=== PATIENT | male | born 1970 | race Caucasian/White ===

== ENCOUNTER 2023-03-10 06:42 | Outpatient (RCR) | payer OTHER, SELFPAY | END 2023-03-10 23:59 | disposition home or self-care (01) | LOC: CRHB 06:42 | PROVIDERS: ATTENDING PHYSICIAN Internal Medicine Cardiovascular Disease; FAMILY PHYSICIAN Physician Assistant Medical | DX: I25.10 Atherosclerotic heart disease of native coronary artery without angina pectoris (principal); Z95.5 Presence of coronary angioplasty implant and graft | CPT/HCPCS: 93798 ==

== ENCOUNTER 2023-04-05 06:40 | Outpatient (RCR) | payer OTHER, SELFPAY | END 2023-04-05 23:59 | disposition home or self-care (01) | LOC: CRHB 06:40 | PROVIDERS: ATTENDING PHYSICIAN Internal Medicine Cardiovascular Disease; FAMILY PHYSICIAN Physician Assistant Medical | DX: I25.10 Atherosclerotic heart disease of native coronary artery without angina pectoris (principal); Z95.5 Presence of coronary angioplasty implant and graft | CPT/HCPCS: 93798 ==

== ENCOUNTER 2023-04-09 06:55 | Outpatient (RCR) | payer OTHER, SELFPAY | END 2023-04-09 23:59 | disposition home or self-care (01) | LOC: CRHB 06:55 | PROVIDERS: ATTENDING PHYSICIAN Internal Medicine Cardiovascular Disease; FAMILY PHYSICIAN Physician Assistant Medical | DX: I25.10 Atherosclerotic heart disease of native coronary artery without angina pectoris (principal); Z95.5 Presence of coronary angioplasty implant and graft | CPT/HCPCS: 93798 ==

== ENCOUNTER → 2023-07-27 07:15 | Outpatient (REF) | payer OTHER, SELFPAY | LOC: RCS 07:15 | PROVIDERS: ATTENDING PHYSICIAN Internal Medicine Cardiovascular Disease; FAMILY PHYSICIAN Physician Assistant Medical | DX: Z95.5 Presence of coronary angioplasty implant and graft (principal); I10 Essential (primary) hypertension; R01.1 Cardiac murmur, unspecified | CPT/HCPCS: 93306 ==

== ENCOUNTER → 2023-08-16 07:17 | Outpatient (REF) | payer OTHER, SELFPAY | LOC: RCS 07:17 | PROVIDERS: ATTENDING PHYSICIAN Internal Medicine Cardiovascular Disease; FAMILY PHYSICIAN Physician Assistant Medical | DX: I25.10 Atherosclerotic heart disease of native coronary artery without angina pectoris (principal); Z95.5 Presence of coronary angioplasty implant and graft; I10 Essential (primary) hypertension | CPT/HCPCS: 78452; 93017; A9500 ==

== ENCOUNTER 2023-08-27 06:26 | Day surgery (SDC) | payer OTHER, SELFPAY ==
[2023-08-27] VITALS (11 sets, daily range): BP systolic 116–148; BP diastolic 77–93; BMI 34.4
[2023-08-27] MEDS: NSS 327 ML IV (06:59)
[2023-08-27 07:24] LABS: Hematocrit 41.9 % (39.0-52.0); Hemoglobin 14.8 g/dL (13.0-18.0); Mean Corp Hgb Conc. 35.3 g/dL (33.0-37.0); Mean Corpuscular Hgb 29.8 pg (27.0-31.0); Mean Corpuscular Volume 84.3 fL (80.0-94.0); Mean Platelet Volume 10.6 fL (7.4-10.4); Platelet Count 222 10^3/uL (130-400); Red Blood Cell Count 4.97 10^6/uL (4.70-6.10); Red Cell Dist. Width 13.2 % (11.5-14.5); White Blood Cell Count 6.7 10^3/uL (4.8-10.8)
[2023-08-27 07:53] LABS: Blood Urea Nitrogen 20 mg/dl (9-20); Calcium 9.3 mg/dl (8.4-10.2); Carbon Dioxide 27 mmol/L (22-30); Chloride 106 mmol/L (98-107); Estimated Creatinine Clearance 119 ml/min; Glucose 113 mg/dl (70-99); Potassium 4.1 mmol/L (3.5-5.1); Sodium 139 mmol/L (135-145); eGFR > 60.00
[2023-08-27 09:24] LABS: ACT-LR - POC 358 Seconds (116-155)
[2023-08-27 09:46] LABS: ACT-LR - POC 313 Seconds (116-155)
[2023-08-27] MEDS: NSS 1000 IV (10:17)
--- NOTE | 2023-08-27 10:38 | ITS.CL.CATH ---
[facility] - Catheterization
Cardiac Catheterization
Procedure Report:
LEFT HEART CATH AND CORONARY INTERVENTION
Date of Procedure: August 27, 2023
Referring: Dr. Jin Brothers
PROCEDURES:
1. Left heart catheterization with coronary and single-plane left ventriculography
2. Successful stenting of the mid RCA with a 4.0 x 26 mm Gómez stent that was postdilated with a 4.0 mm noncompliant balloon inflated to 20 sterling
INDICATION: This is a 53-year-old gentleman with a past medical history notable for hypertension, hyperlipidemia, and prior coronary artery disease. He presented to [facility] on 02/09/2023 with unstable anginal symptoms and was referred for
coronary angiography. He was found to have an ulcerated 95% stenosis in the LAD and underwent successful stenting of the ostial to mid LAD with a 3.5 x 26 mm [place] stent that was post dilated with a 3.5 mm NC balloon. He did very well from February
2023 until mid July 2023. He had returned to running and was doing well until mid-July 2023 when he developed substernal chest pressure with associated nausea. A stress study was notable for a good exercise tolerance, however, he experienced chest
tightness during the exercise protocol and was found to have a reversible inferolateral defect. He is now referred for repeat coronary angiography.
ACCESS: Right radial artery, 6 Macanese sheath
HEMODYNAMICS (mmHg):
AO (s/d, m) : 107/79, 92
LV (s/d) : 110/10
LVEDP : 17
CORONARY FINDINGS
Dominance: Right
LEFT MAIN: Normal
LEFT ANTERIOR DESCENDING: The LAD arises normally from the left main and runs in the anterior interventricular groove. The first diagonal branch arises very proximally from the LAD and has a medium to large caliber vessel. The stent at the ostium
to mid LAD remains widely patent. The first diagonal branch is jailed by the stent but remains angiographically stable. The remainder of the LAD is very tortuous with luminal irregularities noted throughout the course but no focal obstructive
stenosis. The distal LAD wraps around the apex.
CIRCUMFLEX: The circumflex has an acute origin from the left main. OM1 arises proximally from the circumflex and is a small to medium caliber vessel. The circumflex terminates in a large bifurcating OM 2. Minor irregularities are noted.
RIGHT CORONARY: The RCA is a dominant vessel with a proximal colvin's crook. There is a new 95% stenosis in the mid RCA near the origin of the RV marginal branch. The RCA stenosis has the appearance of an acute ruptured plaque. The remainder of
the RCA has minor irregularities
VENTRICULOGRAPHY: Left ventriculography was performed in RAMOS projection. The digital single-plane left ventricular ejection fraction is estimated at 55-60% with mild anterolateral hypokinesis
ANGIOPLASTY PROCEDURE DETAIL: Upon review of the diagnostic catheterization films the decision was made to proceed with percutaneous revascularization of the high-grade stenosis in the mid RCA. Intravenous heparin was administered and the ACT was
measured throughout the procedure and maintained within therapeutic limits. The patient received his standard 90mg of ticagrelor this morning as well as aspirin.
The origin of the RCA was cannulated with a 6 Macanese Hockey Stick guiding catheter and a long BMW guidewire was advanced to the distal RCA. Balloon predilation was performed using a 2.25 mm Emerge balloon and was followed by placement of a 4.0 x 26
mm [place] stent that was implanted at nominal pressures then post dilated with a 4.0 mm NC balloon to 20 atmospheres with a nice angiographic result.
RADIATION SUMMARY: Fluoro Time (min): 11.3, Dose (mGy): 838, DAP (Gy.cm2) : 53.5
CONCLUSIONS
1. Successful stenting of mid RCA with placement of a 4.0 x 26 [place] stent that was postdilated to high pressures with a 4.0 mm noncompliant balloon
2. Preserved left ventricular systolic function
RECOMMENDATIONS
1. Uninterrupted dual antiplatelet therapy for 12 months given unstable nature of symptoms. Will treat with aspirin and ticagrelor
Copy to: Dr. Jin Brothers
--- NOTE | 2023-08-27 14:33 | W.PN.UPDATE ---
Update Note
Progress Note Update
53 yo WM s/p PCI RCA x 1 BARBIE (same day). He feels good, no cp, sob, leanne diet, voiding, EKG SR, no ST changes, R Rad site c/d/i. He will continue DAPT ASA/Brilinta. Cardiac rehab c/s. He will f/u [facility] in 2 weeks. He is for d/c home after 230p.
Referring: Dr. Jin Brothers
PROCEDURES:
1. Left heart catheterization with coronary and single-plane left ventriculography
2. Successful stenting of the mid RCA with a 4.0 x 26 mm Gómez stent that was postdilated with a 4.0 mm noncompliant balloon inflated to 20 sterling
INDICATION: This is a 53-year-old gentleman with a past medical history notable for hypertension, hyperlipidemia, and prior coronary artery disease. He presented to [facility] on 02/09/2023 with unstable anginal symptoms and was referred for
coronary angiography. He was found to have an ulcerated 95% stenosis in the LAD and underwent successful stenting of the ostial to mid LAD with a 3.5 x 26 mm Gómez stent that was post dilated with a 3.5 mm NC balloon. He did very well from February
2023 until mid July 2023. He had returned to running and was doing well until mid-July 2023 when he developed substernal chest pressure with associated nausea. A stress study was notable for a good exercise tolerance, however, he experienced chest
tightness during the exercise protocol and was found to have a reversible inferolateral defect. He is now referred for repeat coronary angiography.
== END 2023-08-27 14:30 | disposition home or self-care (01) ==
LOC: CATH 06:26
PROVIDERS: ATTENDING PHYSICIAN Internal Medicine Interventional Cardiology; FAMILY PHYSICIAN Physician Assistant Medical; OTHER PHYSICIAN Internal Medicine Cardiovascular Disease
DX: I25.10 Atherosclerotic heart disease of native coronary artery without angina pectoris (principal); E78.5 Hyperlipidemia, unspecified; I10 Essential (primary) hypertension; Z95.5 Presence of coronary angioplasty implant and graft; Z79.02 Long term (current) use of antithrombotics/antiplatelets; Z79.82 Long term (current) use of aspirin
CPT/HCPCS: 80048; 85027; 85347; 93005; 93458; C1725; C1769; C1874; C1887; C1894; C9600; Q9967

== ENCOUNTER 2024-01-01 14:23 | Emergency (ER) | payer OTHER, SELFPAY ==
[2024-01-01 14:28] VITALS: BP 130/76
--- NOTE | 2024-01-01 14:45 | ED.GENMED ---
History of Present Illness
<Mayuri Duenas PA-C - Last Filed: 01/01/24 16:15>
General
Chief Complaint: Skin Surface Trauma
Source: patient
Exam Limitations: none
Time Seen by Provider: 01/01/24 14:44
Nursing documentation reviewed up to this point in time: agreed with
History of Present Illness
History of Present Illness:
This is a 53 y/o male with past medical history of hypertension, hyperlipidemia presents emergency department today with concerns of a cut to his left index finger. Patient that he was using a table saw at home today when he was sawing
[id number] and excellently caught his finger within the fall. Patient reports that he immediately rinsed off the wound and reported to the emergency department. Patient notes persistent bleeding. Patient does take aspirin but does not take
any anticoagulant medication. Patient states he has not had his tetanus vaccine within the last 5 years. Patient denies any other injuries.
Past History
<Mayuri Duenas PA-C - Last Filed: 01/01/24 16:15>
Past History
ED Past Medical History: None
ED Past Surgical History: None
Social History
Living: with family
Review of Systems
<Mayuri Duenas PA-C - Last Filed: 01/01/24 16:15>
Review of Systems
All Other Systems: ROS reviewed and negative except as documented in HPI and ROS
Phy Exam
<Mayuri Duenas PA-C - Last Filed: 01/01/24 16:15>
Physical Exam
Physical Exam:
General: Patient is well appearing and in no acute distress; non-toxic
Skin: Warm and dry, brisk capillary refill noted
Head: Normocephalic, atraumatic
Eyes: Sclera non-icteric. EOMs intact.
Cardiac: Regular rate
Pulm: Normal respiratory effort
Abdomen: No abdominal tenderness
Musculoskeletal: Partial skin and nail avulsion noted to left index finger with tenderness to palpation noted at the distal left index finger
Neuro: CN II-XII intact, no focal neurologic deficits. Sensation intact to light touch.
Psychiatric: Appropriate mood and affect.
Course
<Mayuri Duenas PA-C - Last Filed: 01/01/24 16:15>
Orders/Labs/Results
Orders:
Orders
01/01/24 14:33
Finger(s)/Thumb 2 View Lt [CR Finger(s)/thumb Min 2 Vw Lt] Urgent
Comment:
Reason For Exam: tablej saw caught tip of finger
Indicate Which Finger:: Index Finger
01/01/24 15:05
Tetanus/Diphth/Acelpertussis [Adacel] 0.5 ml IM .ONCE ONE
01/01/24 16:00
Cephalexin Monohydrate [Keflex] 500 mg PO NOW STA
Vital Signs
Initial and Last Documented VS:
Initial Vital Signs
Temp Pulse Resp BP Pulse Ox
98.3 F 59 16 130/76 98
01/01/24 14:28 01/01/24 14:28 01/01/24 14:28 01/01/24 14:28 01/01/24 14:28
Last Documented Vital Signs
Temp Pulse Resp BP Pulse Ox
98.3 F 59 16 130/76 98
01/01/24 14:28 01/01/24 14:28 01/01/24 14:28 01/01/24 14:28 01/01/24 14:28
<Pma Wilson DO - Last Filed: 01/01/24 16:08>
Orders/Labs/Results
Orders:
Orders
01/01/24 14:33
Finger(s)/Thumb 2 View Lt [CR Finger(s)/thumb Min 2 Vw Lt] Urgent
Comment:
Reason For Exam: tablej saw caught tip of finger
Indicate Which Finger:: Index Finger
01/01/24 15:05
Tetanus/Diphth/Acelpertussis [Adacel] 0.5 ml IM .ONCE ONE
01/01/24 16:00
Cephalexin Monohydrate [Keflex] 500 mg PO NOW STA
Vital Signs
Initial and Last Documented VS:
Initial Vital Signs
Temp Pulse Resp BP Pulse Ox
98.3 F 59 16 130/76 98
01/01/24 14:28 01/01/24 14:28 01/01/24 14:28 01/01/24 14:28 01/01/24 14:28
Last Documented Vital Signs
Temp Pulse Resp BP Pulse Ox
98.3 F 59 16 130/76 98
01/01/24 14:28 01/01/24 14:28 01/01/24 14:28 01/01/24 14:28 01/01/24 14:28
<Mayuri Duenas PA-C - Last Filed: 01/01/24 16:15>
MDM/Problems Addressed
Differential Diagnosis Includes:
Differentials include abrasion, laceration, avulsion, distal phalanx fracture
MDM/Problems Addressed:
53-year-old male presents emergency department today with concerns of partial fingertip and nail avulsion following injury with table saw. Patient states his last tetanus was likely over 5 years ago. His x-ray shows a distal phalanx fracture.
Patient tetanus was updated and a bulky dressing was applied. He was started on antibiotics prophylactically. He is given follow-up for hand surgery. Return precautions were discussed. All patient's questions were answered. Patient stable for
discharge.
Chronic conditions affecting care:
Hypertension, hyperlipidemia
<Mayuri Duenas PA-C - Last Filed: 01/01/24 16:15>
*Pulse Oximetry
Patient hypoxic: no
*Critical Care Note
Total Time (30-74mins, 75-104mins- exclusive of procedures): Not Applicable
Data Reviewed
Review of Other/Old Records Reveals: Records (Reviewed [facility], reviewed discharge summary from 11/27/2018 where patient was admitted to hospital for cellulitis)
Source: patient and records
Further Testing Considered But Not Given:
n/a
<Mayuri Duenas PA-C - Last Filed: 01/01/24 16:15>
Patient Management
Escalation/DeEscalation of care consider admission/obs:
Admit not indicated
Reviewed case with my ER attending
ED Attending Note
<Mayuri Duenas PA-C - Last Filed: 01/01/24 16:15>
-
Portions of this chart may have been created with voice recognition software.� Occasional wrong word or��sound alike� substitutions may have occurred due to the inherent limitations of voice recognition software.
<Pam Wilson DO - Last Filed: 01/01/24 16:08>
ED Attending Note
ED Attending Note:
53-year-old male presenting to the emergency department with an injury to the left first finger. Patient reports he was using a table saw, partially avulsed the first digit. Bleeding is since been controlled. Tetanus status unknown. Denies
issues with range of motion. He is not on any blood thinners. Vital signs are normal.
On exam, patient is resting comfortably, no acute distress or discomfort. Patient does have a distal avulsion of the left first digit. Bleeding controlled. Partially through the nail, however nailbed is intact. Range of motion intact. Distal
sensation intact. X-ray obtained, distal tuft fracture. Will irrigate, however no suturable tissue. Will provide bulky dressing and update tetanus. Patient to be started on antibiotics plan for outpatient orthopedic follow-up. Return
precautions discussed and patient verbalized understanding
Discharge Plan
Departure
Patient Disposition: Home (Routine Discharge)
Date of Disposition: 01/01/24
Time of Disposition: 16:02
Patient with high blood pressure during this ER visit?: Yes
Condition: Good
Discharge Problem:
Fracture of distal phalanx of finger, Avulsion of skin
Instructions: Finger fracture, Wound Care (DC), BLOOD PRESSURE
Prescriptions:
New
cephalexin 500 mg capsule
500 mg PO QID 5 Days Qty: 20 0RF
No Action
amlodipine 10 mg Tablet
10 mg PO DAILY
lisinopril 10 mg Tablet
10 mg PO DAILY
Rx Instructions:
patient takes in the afternoon
aspirin 81 mg Tablet,Chewable
81 mg PO DAILY
multivitamin Tablet
1 tab PO DAILY
cholecalciferol (vitamin D3) [Vitamin D3] 10 mcg (400 unit) Capsule
10 mcg PO DAILY
vitamin K2 40 mcg Tablet
40 mcg PO DAILY
Brilinta 90 mg tablet
90 mg PO BID Qty: 60 5RF
nitroglycerin 0.4 mg tablet, sublingual
0.4 mg sublingual [id number] PRN (Reason: chest pain) Qty: 25 5RF
metoprolol succinate 25 mg tablet extended release 24 hr
25 mg PO DAILY Qty: 90 10RF
rosuvastatin 20 mg tablet
20 mg PO QPM Qty: 90 5RF
Referrals:
Daria Cortes PA [Family Provider] -
Kenan Thompson MD [Active] - Call in 1-3 days for appt
Activity Restrictions/Additional Instructions:
Your x-ray showed a mildly displaced fracture through the distal tuft of your finger. Please call Dr. Velez office on Wednesday to schedule an appointment for follow-up.
Please change dressing once daily. Please keep dressing in place for 24 hours and do not get the dressing wet. You can start by applying petroleum soaked gauze first over the wound in layers followed by a nonadherent pad, followed by kerlix wrap
and medical tape.
An antibiotic called Keflex has been sent to your pharmacy. Please take 1 tablet 4 times daily for 5 days.
Please return to emergency department should you experience purulent drainage from your wound, fevers or chills, surrounding redness or swelling, and acute worsening of your pain, any other signs or symptoms worrisome to you.
Interventions
Interventions:
*Risk Screen - Suicide Last Done: 01/01/24 14:28
*Neglect/Abuse Screening Last Done: 01/01/24 14:28
Discharge Date and Time
Print Language: GUATEMALAN
[2024-01-01] MEDS: ADACEL 0.5 ML IM (16:18)
[2024-01-01] MEDS: KEFLEX 500 MG PO (16:21)
== END 2024-01-01 16:15 | disposition home or self-care (01) ==
LOC: EMR 14:23
PROVIDERS: EMERGENCY PHYSICIAN Student in an Organized Health Care Education/Training Program; FAMILY PHYSICIAN Physician Assistant Medical
DX: S62.631B Displaced fracture of distal phalanx of left index finger, initial encounter for open fracture (principal); W29.8XXA Contact with other powered hand tools and household machinery, initial encounter; Z23 Encounter for immunization; I10 Essential (primary) hypertension; E78.00 Pure hypercholesterolemia, unspecified; Z79.82 Long term (current) use of aspirin
CPT/HCPCS: 99283; 90471; 73140; 90715

== ENCOUNTER 2025-01-30 14:47 | Emergency (ER) | payer OTHER, SELFPAY ==
[2025-01-30] VITALS (10 sets, daily range): BP systolic 77–153; BP diastolic 67–97; BMI 35.2
--- NOTE | 2025-01-30 15:36 | ED.GENMED ---
History of Present Illness
<Moses Schultz MD, Resident - Last Filed: 01/30/25 22:31>
General
Chief Complaint: Chest Pain
Time Seen by Provider: 01/30/25 15:36
History of Present Illness
History of Present Illness:
55 yo M PMH HTN, HLD, CAD s/p two stents p/w chest pain while on treadmill ~1.5 hours ago. Reports burning in substernal chest that rises up to throat. Happenned yesterday in the setting of no exercise after lunchtime, modestly constant until 5pm
yesterday. Today, was on treadmill, then experienced similar symptoms, modest constant burning rising to throat that self resolved.
the burning pain did not resolve when stopping exertion.
he did not take tums or anything. only tried water which appeared to help.
nonradiating, no arm or jaw pain
this is not similar to the pain he had when he needed stents.
he denies history of GERD, denies nighttime cough, no dyspnea, no headache, no abdominal pain.
report some nausea, at present, he is burning pain free.
pain is not reproducible to palpation or movement of arms
Past History
<Moses Schultz MD, Resident - Last Filed: 01/30/25 22:31>
Past History
ED Past Medical History: None
ED Past Surgical History: None
Social History
Living: with family
Review of Systems
<Moses Schultz MD, Resident - Last Filed: 01/30/25 22:31>
Review of Systems
Constitutional: Reports no symptoms
EENT: Reports no symptoms
Respiratory: Reports no symptoms
Cardiac: Reports chest pain (burning character, radiates up to throat.)
ABD/GI: Reports nausea
: Reports no symptoms
Musculoskeletal: Reports no symptoms
Neurological: Reports no symptoms
Phy Exam
<Moses Schultz MD, Resident - Last Filed: 01/30/25 22:31>
Physical Exam
Physical Exam:
VS: 134/90; HR 65; T 97.5
General: no acute distress
CV: no murmurs, pain is not reproducible to palpation
Pulm: CTAB
Abd: no tenderness to palpation
MSK: no lower extremity edema
Neuro: nonfocal
Scores
<Moses Schultz MD, Resident - Last Filed: 01/30/25 22:31>
Heart Score for Chest Pain Patients
Heart Score for Chest Pain Patients: 4
Heart Score Risk: 20.3% MACE over next 6 weeks
<Devaughn Farmer MD - Last Filed: 01/30/25 23:14>
Heart Score for Chest Pain Patients
STEMI patient?: No
History: Moderately Suspicious
ECG: Normal
Age: >45 - <65 years
Risk Factors: >/= 3 Risk Factors or History of CAD
Troponin: </= Normal Limit
Heart Score for Chest Pain Patients: 4
Heart Score Risk: 20.3% MACE over next 6 weeks
Course
<Moses Schultz MD, Resident - Last Filed: 01/30/25 22:31>
Orders/Labs/Results
Orders:
Orders
01/30/25 14:48
EKG [Electrocardiogram (*1)] Urgent
Reason for Study: Chest Pain
EKG- Treatment ONCE
01/30/25 16:06
CMP [Comprehensive Metabolic Panel] Urgent
Complete Blood Count/With Diff Urgent
Lipase Urgent
Troponin I Urgent
01/30/25 16:15
CR Chest - 2 Views Urgent
Comment:
Reason For Exam: chest pain
01/30/25 18:51
EKG [Electrocardiogram (*1)] Urgent
Reason for Study: Chest Pain
Comment: 2nd troponin
EKG- Treatment ONCE
01/30/25 18:58
Troponin I Urgent
01/30/25 22:05
Troponin I Urgent
Abnormal Lab Results
01/30/25
16:06
Lymphocytes % 15.7 L %
(20.5-51.1)
01/30/25 16:06
01/30/25 16:06
Vital Signs
Initial and Last Documented VS:
Initial Vital Signs
Temp Pulse Resp BP Pulse Ox
36.4 C 80 20 134/90 99
01/30/25 14:51 01/30/25 14:51 01/30/25 14:51 01/30/25 14:51 01/30/25 14:51
Last Documented Vital Signs
Temp Pulse Resp BP Pulse Ox
36.4 C 51 20 132/86 92
01/30/25 14:51 01/30/25 19:45 01/30/25 19:45 01/30/25 19:00 01/30/25 17:45
<Devaughn Farmer MD - Last Filed: 01/30/25 23:14>
Orders/Labs/Results
Orders:
Orders
01/30/25 14:48
EKG [Electrocardiogram (*1)] Urgent
Reason for Study: Chest Pain
EKG- Treatment ONCE
01/30/25 16:06
CMP [Comprehensive Metabolic Panel] Urgent
Complete Blood Count/With Diff Urgent
Lipase Urgent
Troponin I Urgent
01/30/25 16:15
CR Chest - 2 Views Urgent
Comment:
Reason For Exam: chest pain
01/30/25 18:51
EKG [Electrocardiogram (*1)] Urgent
Reason for Study: Chest Pain
Comment: 2nd troponin
EKG- Treatment ONCE
01/30/25 18:58
Troponin I Urgent
01/30/25 22:05
Troponin I Urgent
Abnormal Lab Results
01/30/25
16:06
Lymphocytes % 15.7 L %
(20.5-51.1)
01/30/25 16:06
01/30/25 16:06
Vital Signs
Initial and Last Documented VS:
Initial Vital Signs
Temp Pulse Resp BP Pulse Ox
36.4 C 80 20 134/90 99
01/30/25 14:51 01/30/25 14:51 01/30/25 14:51 01/30/25 14:51 01/30/25 14:51
Last Documented Vital Signs
Temp Pulse Resp BP Pulse Ox
36.4 C 51 20 132/86 92
01/30/25 14:51 01/30/25 19:45 01/30/25 19:45 01/30/25 19:00 01/30/25 17:45
<Moses Schultz MD, Resident - Last Filed: 01/30/25 22:31>
MDM/Problems Addressed
Differential Diagnosis Includes:
ACS, PE, GERD, dissection, costochondritis, peptic ulcer
MDM/Problems Addressed:
55 yo M PMH HTN, HLD, CAD s/p stents x2 p/w burning chest pain substernal radiates up to throat, occurred at rest yesterday, and then upon treadmill exercise today, but did not resolve with resolution of exercise.
ACS remains high on ddx, but other etiologies including PE or dissection should be considered. However, these are lower given the HPI.
burning character could point towards GERD.
Plan:
CBC, CMP
serial troponin
serial EKG
reach out to cardiology
Update:
Troponin < 0.012
Lipase 95
CXR no acute cardiopulmonary process
Per cardiology, if repeat troponin is negative, can do nuclear stress test outpatient with cardiology follow-up
Update:
Troponin #2 0.018
cardiology notified, recommended repeat troponin 3hr interval.
Troponin #3 scheduled at 22:00 * pending
Depending on troponin #3 trend, may need to update cardiology or outpatient follow-up is appropriate.
<Moses Schultz MD, Resident - Last Filed: 01/30/25 22:31>
*Pulse Oximetry
SaO2: 99
Oxygen Mode of Delivery: Room air
Patient hypoxic: no
*Critical Care Note
Total Time (30-74mins, 75-104mins- exclusive of procedures): Not Applicable
ED Attending Note
<Moses Schultz MD, Resident - Last Filed: 01/30/25 22:31>
-
Portions of this chart may have been created with voice recognition software.� Occasional wrong word or��sound alike� substitutions may have occurred due to the inherent limitations of voice recognition software.
<Devaughn Farmer MD - Last Filed: 01/30/25 23:14>
ED Attending Note
Patient seen and examined by attending physician: Yes
I performed a history and physical exam of patient and discussed management with resident, I reviewed resident's note and agree with documented findings and plan of care.: Yes
ED Attending Note:
I have seen and evaluated the patient with a [id number] encounter. I have spoken to the resident and involved in the medical history, the physical exam, medical decision making.
Evaluation and management service: agree unless noted differently below.
Results interpretation: agree unless noted differently below.
Focused HPI: 55-year-old male with a past medical history of hypertension, hyperlipidemia, GERD, CAD status post stents (most recent in September 2022, sees Dr. Jin Brothers for cardiology) who presents to the emergency department for evaluation of
chest pain. Patient reports onset of symptoms yesterday while at rest and lasted for few hours and resolved without intervention. He says today he had onset of symptoms after about 25 minutes on the treadmill and a lasted for about 90 minutes
after stopping the rest�currently chest pain-free. Came to the ER for evaluation. He describes a burning substernal sensation. He denies any associated shortness of breath. He denies any nausea, vomiting, abdominal pain. He denies any swelling
or pain in the legs. He denies any other acute complaints. He says that he has never had similar pains in the past. He did of note recently start Wegovy for weight loss 2 weeks ago.
Physical exam: Awake and alert. Vital signs are normal. No cardiac rubs gallops or murmurs appreciated. Lungs sound clear bilaterally. No JVD and no significant edema in the legs. Good pulses throughout. Abdomen nontender.
Medical Decision Makin-year-old male with significant history of CAD presents for atypical chest pain for the past 24 hours�yesterday had a prolonged resting episode today had an episode seemingly triggered with exertion. Currently chest
pain-free. His vitals and exam are as above. His EKG shows sinus rhythm no acute ischemia. Plan to place an IV check labs including a CBC and a CMP, troponins, lipase. Check chest x-ray. Will discuss case with cardiology given his HEART score
of 4.
Initial troponin undetectable. Chest x-ray no acute disease. Patient seen by cardiology in consultation and recommended repeat troponin if negative discharged for outpatient stress testing.
Repeat troponin negative although there was a delta went from undetectable to 0.018. Resident discussed with cardiology recommended third troponin if flat or negative will proceed with plan for discharge and outpatient stress testing. If
significantly uptrending will need admission.
Third troponin is essentially flat, not significantly elevated compared to prior. Remains negative. Patient chest pain-free, normal vitals on clinical reassessment. Resident discussed with cardiology, recommending follow-up in the office as
planned. Will discharge at this point, patient comfortable with this plan. Spoke about return precautions, follow-up plan, all questions answered in detail.
Discharge Plan
Departure
Patient Disposition: Home (Routine Discharge)
Date of Disposition: 01/30/25
Time of Disposition: 23:14
Patient with high blood pressure during this ER visit?: No
Discharge Problem:
Chest pain
Instructions: Chest Pain DCA Follow Up
Prescriptions:
No Action
amlodipine 10 mg Tablet
10 mg PO DAILY
lisinopril 10 mg Tablet
10 mg PO DAILY
Rx Instructions:
patient takes in the afternoon
aspirin 81 mg Tablet,Chewable
81 mg PO DAILY
multivitamin Tablet
1 tab PO DAILY
cholecalciferol (vitamin D3) [Vitamin D3] 10 mcg (400 unit) Capsule
10 mcg PO DAILY
vitamin K2 40 mcg Tablet
40 mcg PO DAILY
Brilinta 90 mg tablet
90 mg PO BID Qty: 60 5RF
nitroglycerin 0.4 mg tablet, sublingual
0.4 mg sublingual [id number] PRN (Reason: chest pain) Qty: 25 5RF
metoprolol succinate 25 mg tablet extended release 24 hr
25 mg PO DAILY Qty: 90 10RF
rosuvastatin 20 mg tablet
20 mg PO QPM Qty: 90 5RF
cephalexin 500 mg capsule
500 mg PO QID 5 Days Qty: 20 0RF
Referrals:
Jin Brothers MD [Active, Cardiology] - Call in 1-3 days for appt
Activity Restrictions/Additional Instructions:
Thank you for visiting the Emergency Department at [facility].
1. Please schedule a follow up appointment as directed. Call first thing tomorrow morning to make an appointment.
2. If indicated, please take your medications as instructed and indicated on discharge paperwork.
3. If any of your symptoms do not improve, or persist, or become more severe within 6-12 hours, please return to the emergency department for further care.
4. Please return to the emergency department if you develop a headache, neck pain/stiffness, fever greater than 100.4F, chest pain, shortness of breath, persistent nausea, vomiting, slurred speech, difficulty walking, numbness/tingling, weakness,
signs of infection or any other symptoms that are worrisome to you.
Please call [phone] if you have any questions.
Interventions
Interventions:
*General Assessment Last Done: 01/30/25 14:51
*Neglect/Abuse Screening Last Done: 01/30/25 14:51
*ED COVID-19 Vaccine History Last Done: 01/30/25 15:51
*ED Influenza Vaccine History Last Done: 01/30/25 15:51
[facility] Fall Risk Assessment Tool Last Done: 01/30/25 15:51
*Risk Screen - Suicide (C-SSRS) Last Done: 01/30/25 14:51
ED- Cardiac Assessment Last Done: 01/30/25 15:51
Discharge Date and Time
Print Language: TURKISH
[2025-01-30 16:21] LABS: Hematocrit 45.1 % (39.0-52.0); Hemoglobin 15.1 g/dL (13.0-18.0); Mean Corp Hgb Conc. 33.5 g/dL (33.0-37.0); Mean Corpuscular Volume 86.1 fL (80.0-94.0); Nucleated Red Blood Cells % 0 % (-); Platelet Count 260 10^3/uL (130-400); Red Cell Dist. Width 13.5 % (11.5-14.5)
[2025-01-30 16:40] LABS: ALT (SGPT) 48 U/L (0-50); AST (SGOT) 40 U/L (17-59); Albumin 4.8 g/dl (3.5-5.0); Alkaline Phosphatase 67 U/L (38-126); Blood Urea Nitrogen 17 mg/dl (9-20); Calcium 9.3 mg/dl (8.4-10.2); Carbon Dioxide 24 mmol/L (22-30); Chloride 103 mmol/L (98-107); Estimated Creatinine Clearance 109 ml/min; Glucose 89 mg/dl (70-99); Lipase 95 U/L (23-300); Potassium 4.3 mmol/L (3.5-5.1); Sodium 136 mmol/L (135-145); Total Protein 7.3 g/dl (6.3-8.2); eGFR > 60.00
[2025-01-30 16:45] LABS: Troponin I < 0.012 ng/ml
--- NOTE | 2025-01-30 16:51 | CON.CAR ---
Addendum entered and electronically signed by Sawyer Romero DO 01/30/25 17:50:
I saw and examined the patient.
The College Archivist's note was reviewed and I agree with the note.
Comment:
Plan:
Presents with 2 episodes of chest pain that felt like a burning in the base of his throat. This is Not like his prior angina prior to his PCIs to LAD and RCA.
First troponin is negative.
We discussed options. His symptoms are atypical and he was exercising yesterday as well without symptoms. Discussed admit for possible cath tomorrow vs second troponin and if negative then schedule outpt exercise nuclear stress and then follow up
with Dr Brothers. He does not want to stay but is agreeable to second troponin and stress testing.
He knows not to exercise until his stress is completed and to return to ER if he has recurrent symptoms.
EKG is unchanged from prior and troponin negative. Check second 4 hr troponin and if negative then he will return as outpt for stress testing.
HR and bp stable.
Outpatient dose of aspirin 81 mg daily should be continued
Outpatient doses of amlodipine 10 mg daily, lisinopril 40 mg daily and Toprol-XL 12.5 mg daily should be continued
He will review with PCP whether or not he should continue with Wegovy as he may be having symptoms with it.
Discussed with ER.
HPI: Patient came to the ER today with chest pain and cardiology has been consulted. Patient has a history of CAD s/p LAD PCI 02/2023, RCA PCI 08/27/23, HTN, HLD. Patient has a history of LAD PCI with symptoms of abdominal discomfort radiating into
the chest followed by LAD PCI back on 02/10/2023. At time of cardiac cath on 02/10/2023 there was a 50 to 60% mid RCA lesion. Patient then had recurrent chest pain and was taken back to [facility] [employer] [facility] [employer] [facility] on 08/27/2023 and the mid RCA lesion was 95% and
patient had PCI. Since then patient says he has been able to complete exercise including running 3-5 times a week and then walking 70 minutes a day on the off days without any chest pain or recent decrease in exercise tolerance. He has not had any
other concerning chest pain until an episode of substernal chest burning that started after eating a piece of brisket for lunch yesterday. The symptoms lasted for hours, from about 1 PM to 5 PM and then resolved. Patient was beginning one of his
running routines on the treadmill today and 25 minutes into the exercise he had recurrent substernal chest burning up into his throat that persisted even after he stopped exercising. Pain lasted for hours and he returned home and got a shower and
called the cardiology office with ongoing pain. He drank a sip of water and pain felt better dropping from a 5 out of 10 down to a 1 out of 10, but symptoms then returned in the ER waiting room. Initial troponin undetectable. ECG does not show
any acute ischemic change. Overall he says the symptoms are very different from what he had during his initial ACS episodes in 2023. Additionally he started Wegovy and is due for his third shot tomorrow, moving his bowels okay and denies any
nausea or vomiting. Denies SOB, pain to arms or jaw, N/V, lightheadedness.
Original Note:
Consultation
Consultation Request
Date/Time Consultation Performed: 01/30/25
Requesting Provider: Dr. Farmer
Performing Provider: Letty Quezada PA-C for Dr. Romero
Reason for Consultation: Chest pain
Medical History
-
Chief Complaint: CP
History of Present Illness:
Patient came to the ER today with chest pain and cardiology has been consulted. Patient has a history of CAD s/p LAD PCI 02/2023, RCA PCI 08/27/23, HTN, HLD. Patient has a history of LAD PCI with symptoms of abdominal discomfort radiating into the
chest followed by LAD PCI back on 02/10/2023. At time of cardiac cath on 02/10/2023 there was a 50 to 60% mid RCA lesion. Patient then had recurrent chest pain and was taken back to [facility] [employer] [facility] on 08/27/2023 and the mid RCA lesion was 95% and patient
had PCI. Since then patient says he has been able to complete exercise including running 3-5 times a week and then walking 70 minutes a day on the off days without any chest pain or recent decrease in exercise tolerance. He has not had any other
concerning chest pain until an episode of substernal chest burning that started after eating a piece of brisket for lunch yesterday. The symptoms lasted for hours, from about 1 PM to 5 PM and then resolved. Patient was beginning one of his running
routines on the treadmill today and 25 minutes into the exercise he had recurrent substernal chest burning up into his throat that persisted even after he stopped exercising. Pain lasted for hours and he returned home and got a shower and called
the cardiology office with ongoing pain. He drank a sip of water and pain felt better dropping from a 5 out of 10 down to a 1 out of 10, but symptoms then returned in the ER waiting room. Initial troponin undetectable. ECG does not show any acute
ischemic change. Overall he says the symptoms are very different from what he had during his initial ACS episodes in 2023. Additionally he started Wegovy and is due for his third shot tomorrow, moving his bowels okay and denies any nausea or
vomiting. Denies SOB, pain to arms or jaw, N/V, lightheadedness.
PMH:
CAD
s/p 3.5 mm [place] BARBIE to the LAD 02/10/2023
s/p 4.0 [place] BARBIE to the mid RCA 08/27/2023
HTN
HLD
Obesity
Past Medical History
Past Medical History: Other (in HPI)
Past Surgical History: Cardiac (LAD PCI 02/10/2023, RCA PCI 08/27/2023)
Social History
Tobacco: Non-Smoker
Alcohol: Daily
Drug: None
Personal:
Living: With Family
Employment: Employed
Family History
Family History: CAD and Hypertension
Allergies / Home Medications
Allergy/AdvReac Type Severity Reaction Status Date / Time
No Known Allergies Allergy Verified 01/30/25 14:51
�Medication �Instructions �Recorded �Confirmed �Type
amlodipine 10 mg tablet 10 mg PO DAILY 01/20/23 08/27/23 History
lisinopril 10 mg tablet 10 mg PO DAILY 01/20/23 08/27/23 History
aspirin 81 mg chewable tablet 81 mg PO DAILY 02/10/23 08/27/23 History
cholecalciferol (vitamin D3) 10 10 mcg PO DAILY 02/10/23 08/27/23 History
mcg (400 unit) capsule (Vitamin D3)
metoprolol succinate 25 mg 25 mg PO DAILY #90 tabs 02/10/23 08/27/23 Rx
tablet,extended release 24 hr
multivitamin 1 tab PO DAILY 02/10/23 08/27/23 History
nitroglycerin 0.4 mg sublingual 0.4 mg sublingual [id number] PRN 02/10/23 08/27/23 Rx
tablet chest pain #25 tabs
rosuvastatin 20 mg tablet 20 mg PO QPM #90 tabs 02/10/23 08/27/23 Rx
ticagrelor 90 mg tablet (Brilinta) 90 mg PO BID #60 tabs 02/10/23 08/27/23 Rx
vitamin K2 40 mcg tablet 40 mcg PO DAILY 02/10/23 08/27/23 History
cephalexin 500 mg capsule 500 mg PO QID 5 days #20 caps 01/01/24 Rx
Review of Systems
-
History Source: Patient
All other systems: Negative unless noted
Physical Exam
Vital Signs
Temp Pulse Resp BP Pulse Ox
97.5 F 65 12 145/67 97
01/30/25 14:51 01/30/25 16:00 01/30/25 16:00 01/30/25 15:48 01/30/25 16:00
GEN: NAD. AAO x 3
HEENT: EOMI, MMM
LUNGS: RA. CTA B/L, no wheeze
CV: SR on telemetry. Reg, S1/S2, no murmur
ABD: ND
EXT: No edema B/L LE
NEURO: Gross non-focal
SKIN: No rash
Lab Results
01/30/25 16:06
01/30/25 16:06
Troponin I < 0.012 ng/ml 01/30/25 16:06
Impression / Plan
-
PCP: Daria Cortes
Primary Crab Picker: Dr. DANITA Brothers
Assessment:
Presentation with CP 01/30/2025
Chest pain with undetectable troponin initially
CAD
s/p 3.5 mm [place] BARBIE to the LAD 02/10/2023
s/p 4.0 [place] BARBIE to the mid RCA 08/27/2023
HTN
HLD
Obesity
ECHO 07/27/23: EF 55 to 60%, mild concentric LVH, aortic sclerosis, trace AR, mildly dilated aortic root 3.8 cm
Plan:
-Patient came to the ER today with chest pain and cardiology has been consulted. Patient has a history of CAD s/p LAD PCI 02/2023, RCA PCI 08/27/23, HTN, HLD. Patient has a history of LAD PCI with symptoms of abdominal discomfort radiating into the
chest followed by LAD PCI back on 02/10/2023. At time of cardiac cath on 02/10/2023 there was a 50 to 60% mid RCA lesion. Patient then had recurrent chest pain and was taken back to [facility] [employer] on 08/27/2023 and the mid RCA lesion was 95% and patient
had PCI. Since then patient says he has been able to complete exercise including running 3-5 times a week and then walking 70 minutes a day on the off days without any chest pain or recent decrease in exercise tolerance. He has not had any other
concerning chest pain until an episode of substernal chest burning that started after eating a piece of brisket for lunch yesterday. The symptoms lasted for hours, from about 1 PM to 5 PM and then resolved. Patient was beginning one of his running
routines on the treadmill today and 25 minutes into the exercise he had recurrent substernal chest burning up into his throat that persisted even after he stopped exercising. Pain lasted for hours and he returned home and got a shower and called
the cardiology office with ongoing pain. He drank a sip of water and pain felt better dropping from a 5 out of 10 down to a 1 out of 10, but symptoms then returned in the ER waiting room. Initial troponin undetectable. ECG does not show any acute
ischemic change. Overall he says the symptoms are very different from what he had during his initial ACS episodes in 2023. Additionally he started Wegovy and is due for his third shot tomorrow, moving his bowels okay and denies any nausea or
vomiting. Denies SOB, pain to arms or jaw, N/V, lightheadedness.
-ECG reviewed by me is SR without acute ST changes
-Initial troponin is undetectable despite hours of pain today and yesterday. Patient reports the symptoms feel different than his previous ACS. Patient does not routinely have chest pain however and this is unusual for him to have chest pain
symptoms.
-Given the patient's history of accelerated CAD as outlined above we discussed option of proceeding with cardiac catheterization as an evaluation if he has ongoing chest pain or if his next troponin returns elevated. If the next troponin remains
undetectable then patient can be discharged to home for an outpatient exercise nuclear stress test.
-Outpatient dose of aspirin 81 mg daily should be continued
-Patient stopped taking Brilinta at the direction of Dr. Brothers during his last office visit on 07/13/2024 as it had been almost 1 year since his last stent, patient previously tolerated Brilinta without issue.
-Outpatient doses of amlodipine 10 mg daily, lisinopril 40 mg daily and Toprol-XL 12.5 mg daily should be continued
Data Reviewed
-
EKG: Tracing Personally Visualized and interpreted
Medical Tests (Nuc Med, Echo etc): Report Reviewed by me
Labs: Labs Reviewed by me
Old Records: Reviewed
[2025-01-30 19:44] LABS: Troponin I 0.018 ng/ml
[2025-01-30 23:00] LABS: Troponin I 0.022 ng/ml
== END 2025-01-30 23:27 | disposition home or self-care (01) ==
LOC: EMR 14:47
PROVIDERS: EMERGENCY PHYSICIAN Emergency Medicine; FAMILY PHYSICIAN Physician Assistant Medical
DX: R07.9 Chest pain, unspecified (principal); I10 Essential (primary) hypertension; E78.5 Hyperlipidemia, unspecified; I25.10 Atherosclerotic heart disease of native coronary artery without angina pectoris; K21.9 Gastro-esophageal reflux disease without esophagitis; Z95.5 Presence of coronary angioplasty implant and graft; Z79.899 Other long term (current) drug therapy; Z79.82 Long term (current) use of aspirin
CPT/HCPCS: 99285; 71046; 80053; 83690; 84484; 85025; 93005

== ENCOUNTER → 2025-02-05 12:20 | Outpatient (REF) | payer OTHER, SELFPAY | LOC: HWRCS 12:20 | PROVIDERS: ATTENDING PHYSICIAN Internal Medicine Cardiovascular Disease; FAMILY PHYSICIAN Physician Assistant Medical | DX: R07.9 Chest pain, unspecified (principal); I25.119 Atherosclerotic heart disease of native coronary artery with unspecified angina pectoris | CPT/HCPCS: 78452; 93017; A9500 ==